=== PATIENT | male | born 1995 | race Caucasian/White ===

== ENCOUNTER 2016-08-10 17:36 | Emergency (ER) | payer SELFPAY ==
[~2016-08-10] VITALS: Ht 182.9 cm; Wt 130.0 kg
[~2016-08-10 17:36] MED LIST: CIPR500T4 PO
[2016-08-10 17:38] VITALS: BP 159/87; PULSE 99; RESP 20; TEMP 99.2; O2SAT 99
--- NOTE | 2016-08-10 17:56 | PD ---
HPI . left index finger cut Chief Complaint: Laceration/Skin Injury Time Seen by Provider: 17:56 Travel History International Travel<30 days: No Contact w/Intl Traveler<30days: No Traveled to known affect area: No History of Present Illness HPI 21-year-old male with no past medical history here with complaints of a left index finger cut that he sustained while cutting cabbage a little bit earlier today. He tells me that he cut a portion of his finger off. He says that he is almost certain we are unable to repair it, but he just wanted to come in for evaluation as it was bleeding. He denies any pain or other trauma to the area. He does not recall the date of his last tetanus exam. PFSH Past Medical History Cardiovascular Problems: Yes Diminished Hearing: No Past Surgical History Ear Surgery: Yes ([facility] CHILD) Social History Alcohol Use: Yes ([facility]) Tobacco Use: No (QUIT X1 MONTH AGO) Substance Use: No Allergies-Medications (Allergen,Severity, Reaction): Coded Allergies: Sulfa (Verified Allergy, Unknown, 08/10/16) Reported Meds & Prescriptions Reported Meds & Active Scripts Active No Active Prescriptions or Reported Medications Review of Systems General / Constitutional: No: Fever Eyes: No: Visual changes HENT: No: Headaches Cardiovascular: No: Chest Pain or Discomfort Respiratory: No: Shortness of Breath Gastrointestinal: No: Abdominal Pain Genitourinary: No: Dysuria Musculoskeletal: No: Pain Skin: Positive Other (finger avulsion), No Rash Neurologic: No: Weakness Psychiatric: No: Depression Endocrine: No: Polydipsia Hematologic/Lymphatic: No: Easy Bruising Physical Exam Narrative GENERAL: AAO x 3, no acute distress, Well-nourished, well-developed patient. SKIN: Warm and dry. No visible rashes or bruising. Small 0.8 cm avulsion to the left index finger lateral finger, small portion of nail off 0.2 cm HEAD: Normocephalic and atraumatic. EYES: No scleral icterus. No injection or drainage. ENT: No nasal drainage noted. . Airway patent. NECK: Supple, trachea midline. No JVD. CARDIOVASCULAR: Regular rate and rhythm without murmurs, gallops, or rubs. RESPIRATORY: Breath sounds equal bilaterally. No accessory muscle use. No rhonchi or rales. GASTROINTESTINAL: Abdomen soft, non-tender, nondistended. EXTREMITIES: No cyanosis or edema. Full range of motion of all digits of the left hand. Normal capillary refill. BACK: Nontender without obvious deformity. No CVA tenderness. PSYCH: AAO x 3, normal affect. Data Data Last Documented VS Vital Signs Date Time Temp Pulse Resp B/P Pulse Ox O2 Delivery O2 Flow Rate FiO2 08/10/16 17:38 99.2 99 20 159/87 99 Room Air Orders Tetanus/Diphtheria Tox Adult (Tetanus/Di (08/10/16 18:00) Wound Care (08/10/16 18:07) MDM Medical Decision Making Medical Screen Exam Complete: Yes Emergency Medical Condition: Yes Medical Record Reviewed: Yes Differential Diagnosis finger avulsion, less likely repairable laceration, less likely finger fracture Narrative Course This is a 21-year-old male here with a cut to his left index finger. Unfortunately this is an avulsion and the skin is completely removed. There is nothing amenable to repair with sutures or Dermabond. I've explained this to the patient. We will go ahead and clean the area and provide a clean sterile dressing. I discussed wound care and signs of infection. I do not see the need for any prophylactic antibiotic. I provided a tetanus shot today. He can use [id number] Tylenol and Motrin as needed for pain. Finger splint provided for protection. Patient verbalized understanding of instructions, questions were answered, and thanked me for their care. I advised them if their condition worsens, please return to the nearest emergency room for further care. Diagnosis Primary Impression: Avulsion of finger tip Qualified Code: S61.209A - Avulsion of finger tip, initial encounter Patient Instructions: Acute Wound Care (ED), General Instructions Departure Forms: Tests/Procedures, Work Release Enter return to work date: August 12, 2016 Additional Instructions: Keep area clean and dry. Use gauze as we discussed and change 1-2 times a day. Watch for signs of infection: fever, redness, swelling, warmth, pus or drainage , red streaks around the cut, and increased pain from the area. If you received a tetanus shot, you may experience tenderness at the injection site. This is normal. Tylenol or Motrin as needed for pain. Med/Other Pt SpecificInfo: No Change to Meds Scripts No Active Prescriptions or Reported Meds Disposition: DISCHARGE HOME Condition: Stable Ximena Davies August 10, 2016 17:56
[2016-08-10] MEDS ORDERED: TETANUS/DIPHTHERIA TOXOID ADULT 0.5 ML VIAL IM ONE (18:00)
== END 2016-08-10 18:30 | disposition home or self-care (01) ==
LOC: NEPK 17:36
DX: S61.211A Laceration without foreign body of left index finger without damage to nail, initial encounter (principal); W26.0XXA Contact with knife, initial encounter; Y93.G1 Activity, food preparation and clean up; Z23 Encounter for immunization
CPT/HCPCS: 90471; 90714